=== PATIENT | male | born 1960 | race African-American/Black ===

== ENCOUNTER 2018-09-01 11:14 | Inpatient (IN) | payer BC ==
[2018-09-01 14:22] VITALS: BMI 23.0
--- NOTE | 2018-09-01 17:03 | HP ---
COWS - Scale Resting Pulse: 0= [place] 80 or Below Sweatin= Chills/Flushing Restless Observation: 1= Difficult to Sit Still Pupil Size: 0= Normal to Room Light Bone or Joint Aches: 1= Mild Discomfort Runny Nose/ Eye Tearin= Nasal Congestion GI Upset > 30mins: 1= Stomach Cramp Tremor Observation: 1= Tremor [place], Not Seen Yawning Observation: 2= >3x During Session Anxiety or Irritability: 1=Feels Anxious/Irritable Goose Flesh Skin: 0=Smooth Skin COWS Score: 9 CIWA Score - Admission Criteria OASAS Guidelines: Admission for Medically Managed Detox: Requires at least one of the followin. CIWA greater than 12 2. Seizures within the past 24 hours 3. Delirium tremens within the past 24 hours 4. Hallucinations within the past 24 hours 5. Acute intervention needed for co occurring medical disorder 6. Acute intervention needed for co occurring psychiatric disorder 7. Severe withdrawal that cannot be handled at a lower level of care (continued vomiting, continued diarrhea, abnormal vital signs) requiring intravenous medication and/or fluids 8. Admission ROS [facility] - HPI Chief Complaint: opioid withdrawal symptoms Allergies/Adverse Reactions: Allergies Allergy/AdvReac Type Severity Reaction Status Date / Time Penicillins Allergy Intermediate Hives Verified 09/01/18 14:10 pork derived (porcine) Allergy Intermediate Hives Verified 09/01/18 14:10 History of Present Illness: Patient is a 58 yo male with hx of heroin (intranasal) and crack/cocaine dependence is here seeking inpatient detox: PMHX: mitral valve and aortic Valve replacement (Feb 2018), HTN, eczema, HDL Psych: Denies Reports hx of unintentional overdose x 3 with last episode one month ago. Denies hx of seizures or blackouts Exam Limitations: No Limitations - Ebola screening Have you traveled outside of the country in the last 21 days: No Have you had contact with anyone from an Ebola affected area: No Do you have a fever: No - Review of Systems Constitutional: Changes in sleep, Weakness, Other (weight losst x 7 lbs) EENT: reports: Nose Congestion Respiratory: reports: No Symptoms reported Cardiac: reports: See HPI GI: reports: Poor Fluid Intake, Abdominal cramping : reports: No Symptoms Reported Musculoskeletal: reports: Back Pain Integumentary: reports: See HPI Neuro: reports: Weakness Endocrine: reports: No Symptoms Reported Hematology: reports: See HPI Psychiatric: reports: Mood/Affect Appropiate, Orientated x3 Other Systems: Reviewed and Negative Patient History - Patient Medical History Hx Anemia: Yes Hx Asthma: No Hx Chronic Obstructive Pulmonary Disease (COPD): No Hx Cancer: No Hx Cardiac Disorders: Yes (mitral vMitral Valve and aortic Valve replacement ( Feb 2018)) Hx Congestive Heart Failure: No Hx Hypertension: Yes Hx Hypercholesterolemia: Yes Hx Pacemaker: No HX Cerebrovascular Accident: No Hx Seizures: No Hx Dementia: No Hx Diabetes: No Hx Gastrointestinal Disorders: No Hx Liver Disease: No Hx Genitourinary Disorders: No Hx Sexually Transmitted Disorders: No Hx Renal Disease (ESRD): No Hx Thyroid Disease: No Hx Human Immunodeficiency Virus (HIV): No Hx Hepatitis C: No Hx Depression: No Hx Suicide Attempt: No Hx Bipolar Disorder: No - Patient Surgical History Past Surgical History: Yes Hx Cardiac Surgery: Yes (mitral vMitral Valve and aortic Valve replacement (Feb 2018)) Anesthesia Reaction: No - PPD History Previous Implant?: No Documented Results: Negative w/o proof PPD to be Administered?: Yes - Smoking Cessation Smoking history: Current every day smoker Have you smoked in the past 12 months: Yes Aproximately how many cigarettes per day: 5 Hx Chewing Tobacco Use: No Initiated information on smoking cessation: Yes 'Breaking Loose' booklet given: 09/01/18 - Substance & Tx. History Hx Alcohol Use: No Hx Substance Use: Yes Substance Use Type: Cocaine, Heroin Hx Substance Use Treatment: Yes ([facility] outpatient ) - Substances abused Crack Substance route: Smoking Frequency: Daily Amount used: $50-$60 Age of first use: 24 Date of last use: 09/01/18 Heroin Substance route: Inhalation Frequency: 3-6 times per week Amount used: 2 bags Age of first use: 24 Date of last use: 08/31/18 Family Disease History - Family Disease History Family History: Denies Admission Physical Exam [facility] - Vital Signs Vital Signs: Vital Signs - 24 hr 09/01/18 14:02 Temperature 97.0 F L Pulse Rate 76 Respiratory 17 Rate Blood Pressure 128/85 - Physical General Appearance: Yes: Appropriately Dressed, Thin, Anxious HEENTM: Yes: EOMI, Hearing grossly Normal, Normal ENT Inspection, Normocephalic , Normal Voice, MICHEAL, Pharynx Normal, Tm's normal, Other (chilithis) Respiratory: Yes: Chest Non-Tender, Lungs Clear, Normal Breath Sounds, No Respiratory Distress, No Accessory Muscle Use Neck: Yes: Within Normal Limits Breast: Yes: Breast Exam Deferred Cardiology: Yes: Regular Rhythm, Murmur, Other (+ metallic click) Abdominal: Yes: Within Normal Limits Genitourinary: Yes: Within Normal Limits Back: Yes: Within Normal Limits Musculoskeletal: Yes: full range of Motion, Gait Steady, Pelvis Stable, Back pain Extremities: Yes: Normal Capillary Refill, Normal Inspection, Normal Range of Motion, Non-Tender Neurological: Yes: insurance counsel II-XII NML intact, Fully Oriented, Alert, Motor Strength 5/5 Integumentary: Yes: Normal Color, Warm, Diaphoresis, Other (+ hyperpigermentation on both feet d/t eczema) Lymphatic: Yes: Within Normal Limits - Diagnostic (1) Opioid dependence with withdrawal Current Visit: Yes Status: Acute (2) Cocaine dependence Current Visit: Yes Status: Acute Qualifiers: Substance use status: uncomplicated Qualified Code(s): F14.20 - Cocaine dependence, uncomplicated (3) Essential (primary) hypertension Current Visit: Yes Status: Chronic (4) H/O aortic valve replacement Current Visit: Yes Status: Chronic Comment: Aortic and Mitral Valve replacement february 2018 on warfarin 8 mg qd (5) Nicotine dependence Current Visit: Yes Status: Acute Qualifiers: Nicotine product type: cigarettes (6) Eczema Current Visit: Yes Status: Chronic Qualifiers: Eczema type: flexural Qualified Code(s): L20.82 - Flexural eczema Cleared for Admission [facility] - Detox or Rehab [facility] Level of Care: Medically Managed Detox Regimen/Protocol: Methadone Breathalyzer - Breathalyzer Breathalyzer: 0 Urine Drug Screen - Test Device Lot number: [id number] Expiration date: 05/12/20 - Control Is test valid?: Yes - Results Drug screen NEGATIVE: No Urine drug screen results: JACK-Cocaine, FEN-Fentanyl, MOP-Opiates, BZO- Benzodiazepines, BUP-Suboxone Inpatient Rehab Admission - Rehab Decision to Admit Inpatient rehab admission?: No
[2018-09-01] MEDS ORDERED: cloNIDine HCL 0.1 MG TABLET PO PRN (17:10)
[2018-09-01] MEDS ORDERED: BISMUTH SUBSALICYLATE 524 MG/30 ML UD PO PRN (17:11)
[2018-09-01] MEDS ORDERED: MELATONIN 5 MG TABLETS PO PRN (17:11)
[2018-09-01] MEDS ORDERED: METHOCARBAMOL 500 MG TABLET PO PRN (17:11)
[2018-09-01] MEDS ORDERED: MAGNESIUM CITRATE 300 ML BOTTLE PO PRN (17:11)
[2018-09-01] MEDS ORDERED: MAGNESIUM HYDROX 2400MG/30ML ORAL SUSPENSION 30 ML CUP PO PRN (17:11)
[2018-09-01] MEDS ORDERED: ACETAMINOPHEN 325 MG TABLET (FP) PO PRN ×2 (17:11)
[2018-09-01] MEDS ORDERED: MENTHOL/PHENOL 1 EACH UD MM PRN (17:11)
[2018-09-01] MEDS ORDERED: MAG HYDROX/AL HYDROX/SIMETH 30 ML UNIT-DOSE CUP PO PRN (17:11)
[2018-09-01] MEDS ORDERED: diazePAM 5 MG TABLET PO PRN (17:22)
[2018-09-01] MEDS: THIAMINE HCL 100 MG TABLET (FP) PO SCH (22:53)
[2018-09-01] MEDS: MINERAL OIL/PETROLAT/WATER TOPICAL CREAM 113 GM JAR TP SCH (22:53)
[2018-09-01] MEDS: VITAMINS A AND D TOPICAL OINTMENT 60 GM TUBE TP SCH (22:53)
[2018-09-01] MEDS: METOPROLOL TARTRATE 25 MG TABLET (FP) PO SCH (22:53)
[2018-09-01] MEDS ORDERED: METHADONE HCL 10 MG TABLET (FOR DETOX USE ONLY) PO ONE (23:00)
[2018-09-02 05:49] LABS: URINE APPEARANCE CLEAR; URINE BILIRUBIN NEGATIVE (NEGATIVE); URINE COLOR YELLOW; URINE GLUCOSE (UA) NEGATIVE (NEGATIVE); URINE KETONE NEGATIVE (NEGATIVE); URINE LEUK ESTERASE NEGATIVE (NEGATIVE); URINE NITRITE NEGATIVE (NEGATIVE); URINE PROTEIN TRACE (NEGATIVE)
[2018-09-02] MEDS ORDERED: METHADONE HCL 5 MG TABLET (FOR DETOX USE ONLY) PO ONE (10:00)
[2018-09-02] MEDS: ATORVASTATIN CA 80 MG TABLET (FP) PO SCH (10:33)
[2018-09-02] MEDS: LISINOPRIL 5 MG TABLET (FP) PO SCH (10:33)
[2018-09-02] MEDS: PRENATAL VITAMINS W/ FOLIC ACID TABLET (FP) PO SCH (10:34)
[2018-09-02] MEDS: METOPROLOL TARTRATE 25 MG TABLET (FP) PO SCH ×2 (10:34→23:04)
[2018-09-02] MEDS: MINERAL OIL/PETROLAT/WATER TOPICAL CREAM 113 GM JAR TP SCH ×2 (10:35→23:04)
[2018-09-02] MEDS: VITAMINS A AND D TOPICAL OINTMENT 60 GM TUBE TP SCH ×2 (10:35→23:04)
[2018-09-02 11:48] LABS: ALBUMIN 3.1 g/dl (3.4-5.0); BILIRUBIN,TOTAL 0.3 mg/dL (0.2-1); BLOOD UREA NITROGEN 18.5 mg/dL (7-18); CALCIUM 8.8 mg/dL (8.5-10.1); CREATININE 1.2 mg/dL (0.55-1.3); POTASSIUM 4.2 mmol/L (3.5-5.1); TOT PROT 6.5 g/dl (6.4-8.2)
[2018-09-02 11:49] LABS: HEMATOCRIT 35.4 % (35.4-49); HEMOGLOBIN 11.7 GM/dL (11.7-16.9); MCH 29.5 pg (25.7-33.7); MCHC 33.1 g/dl (32.0-35.9); MEAN CELL VOLUME 89.1 fl (80-96); MEAN PLT VOLUME 9.2 fl (7.5-11.1); PLATELET COUNT 214 K/MM3 (134-434); RBC 3.97 M/mm3 (4.00-5.60); RDW 14.5 % (11.9-15.9); WHITE BLOOD COUNT 5.2 K/mm3 (4.0-10.0)
--- NOTE | 2018-09-02 12:26 | PN ---
S COWS - Scale Resting Pulse: 0= [place] 80 or Below Sweatin= Chills/Flushing Restless Observation: 1= Difficult to Sit Still Pupil Size: 1= Pupils >than Normal Bone or Joint Aches: 2= Severe Diffuse Aches Runny Nose/ Eye Tearin= Runny Nose/Eyes GI Upset > 30mins: 2= Nausea/Diarrhea Tremor Observation of Outstretched Hands: 2= Slight Tremor Visible Yawning Observation: 1= 1-2x During Session Anxiety or Irritability: 2=Irritable/Anxious Goose Flesh Skin: 0=Smooth Skin COWS Score: 14 S Progress Note (SOAP) Subjective: alert,irritable,anxious,interrupted sleep,tremor,pain in the body and back Objective: 09/02/18 12:24 Vital Signs Temperature 98.3 F 09/02/18 09:27 Pulse Rate 79 09/02/18 09:27 Respiratory Rate 18 09/02/18 09:27 Blood Pressure 122/77 09/02/18 09:27 O2 Sat by Pulse Oximetry (%) 09/02/18 12:25 Laboratory Last Values WBC 5.2 K/mm3 (4.0-10.0) 09/02/18 07:00 RBC 3.97 M/mm3 (4.00-5.60) L 09/02/18 07:00 Hgb 11.7 GM/dL (11.7-16.9) 09/02/18 07:00 Hct 35.4 % (35.4-49) 09/02/18 07:00 MCV 89.1 fl (80-96) 09/02/18 07:00 MCH 29.5 pg (25.7-33.7) 09/02/18 07:00 MCHC 33.1 g/dl (32.0-35.9) 09/02/18 07:00 RDW 14.5 % (11.9-15.9) 09/02/18 07:00 Plt Count 214 K/MM3 (134-434) 09/02/18 07:00 MPV 9.2 fl (7.5-11.1) 09/02/18 07:00 Sodium 143 mmol/L (136-145) 09/02/18 07:00 Potassium 4.2 mmol/L (3.5-5.1) 09/02/18 07:00 Chloride 108 mmol/L (98-107) H 09/02/18 07:00 Carbon Dioxide 30 mmol/L (21-32) 09/02/18 07:00 Anion Gap 5 MMOL/L (8-16) L 09/02/18 07:00 BUN 18.5 mg/dL (7-18) H 09/02/18 07:00 Creatinine 1.2 mg/dL (0.55-1.3) 09/02/18 07:00 Est GFR (CKD-EPI)AfAm 75.72 09/02/18 07:00 Est GFR (CKD-EPI)NonAf 65.33 09/02/18 07:00 Random Glucose 87 mg/dL (74-106) 09/02/18 07:00 Calcium 8.8 mg/dL (8.5-10.1) 09/02/18 07:00 Total Bilirubin 0.3 mg/dL (0.2-1) 09/02/18 07:00 AST 37 U/L (15-37) 09/02/18 07:00 ALT 34 U/L (13-61) 09/02/18 07:00 Alkaline Phosphatase 101 U/L (45-117) 09/02/18 07:00 Total Protein 6.5 g/dl (6.4-8.2) 09/02/18 07:00 Albumin 3.1 g/dl (3.4-5.0) L 09/02/18 07:00 Urine Color Yellow 09/02/18 04:00 Urine Appearance Clear 09/02/18 04:00 Urine pH 6.0 (5.0-8.0) 09/02/18 04:00 Ur Specific [place] 1.020 (1.010-1.035) 09/02/18 04:00 Urine Protein Trace (NEGATIVE) 09/02/18 04:00 Urine Glucose (UA) Negative (NEGATIVE) 09/02/18 04:00 Urine Ketones Negative (NEGATIVE) 09/02/18 04:00 Urine Blood Negative (NEGATIVE) 09/02/18 04:00 Urine Nitrite Negative (NEGATIVE) 09/02/18 04:00 Urine Bilirubin Negative (NEGATIVE) 09/02/18 04:00 Urine Urobilinogen 1.0 mg/dL (0.2-1.0) 09/02/18 04:00 Ur Leukocyte Esterase Negative (NEGATIVE) 09/02/18 04:00 09/02/18 12:25 rpr pending Assessment: 09/02/18 12:26 withdrawal symptom Plan: continue detox
--- NOTE | 2018-09-02 15:48 | PN ---
[facility] Progress Note Note: patient is on coumadin 8 mgs po daily,inr ordered in am
[2018-09-02] MEDS: WARFARIN NA 2 MG TABLET (UD) PO SCH (18:12)
[2018-09-02] MEDS: THIAMINE HCL 100 MG TABLET (FP) PO SCH (23:04)
--- NOTE | 2018-09-03 09:37 | PN ---
[facility] COWS - Scale Resting Pulse: 0= [place] 80 or Below Sweatin= Chills/Flushing Restless Observation: 1= Difficult to Sit Still Pupil Size: 0= Normal to Room Light Bone or Joint Aches: 1= Mild Discomfort Runny Nose/ Eye Tearin= None GI Upset > 30mins: 0= None Tremor Observation of Outstretched Hands: 0= None Yawning Observation: 1= 1-2x During Session Anxiety or Irritability: 2=Irritable/Anxious Goose Flesh Skin: 0=Smooth Skin COWS Score: 6 S Progress Note (SOAP) Subjective: c/o irritability, sweats, and mild headache. Objective: 09/03/18 09:35 Vital Signs 09/03/18 09/03/18 03:30 06:20 Temperature 97.6 F Pulse Rate 69 Respiratory 18 18 Rate Blood Pressure 125/82 Lab Results WBC 5.2 K/mm3 (4.0-10.0) 09/02/18 07:00 RBC 3.97 M/mm3 (4.00-5.60) L 09/02/18 07:00 Hgb 11.7 GM/dL (11.7-16.9) 09/02/18 07:00 Hct 35.4 % (35.4-49) 09/02/18 07:00 MCV 89.1 fl (80-96) 09/02/18 07:00 MCHC 33.1 g/dl (32.0-35.9) 09/02/18 07:00 RDW 14.5 % (11.9-15.9) 09/02/18 07:00 Plt Count 214 K/MM3 (134-434) 09/02/18 07:00 Sodium 143 mmol/L (136-145) 09/02/18 07:00 Potassium 4.2 mmol/L (3.5-5.1) 09/02/18 07:00 Chloride 108 mmol/L (98-107) H 09/02/18 07:00 Carbon Dioxide 30 mmol/L (21-32) 09/02/18 07:00 Anion Gap 5 MMOL/L (8-16) L 09/02/18 07:00 BUN 18.5 mg/dL (7-18) H 09/02/18 07:00 Creatinine 1.2 mg/dL (0.55-1.3) 09/02/18 07:00 Random Glucose 87 mg/dL (74-106) 09/02/18 07:00 Calcium 8.8 mg/dL (8.5-10.1) 09/02/18 07:00 Labs noted. Assessment: 09/03/18 09:35 AOX3, in no acute distress. Full rom, ambulates in the unit. withdrawal signs Plan: continue detox. increase fluids.
[2018-09-03] MEDS ORDERED: METHADONE HCL 10 MG TABLET (FOR DETOX USE ONLY) PO ONE (10:00)
[2018-09-03] MEDS: MINERAL OIL/PETROLAT/WATER TOPICAL CREAM 113 GM JAR TP SCH ×2 (12:39→22:42)
[2018-09-03] MEDS: METOPROLOL TARTRATE 25 MG TABLET (FP) PO SCH ×2 (12:39→22:42)
[2018-09-03] MEDS: ATORVASTATIN CA 80 MG TABLET (FP) PO SCH (12:39)
[2018-09-03] MEDS: LISINOPRIL 5 MG TABLET (FP) PO SCH (12:39)
[2018-09-03] MEDS: VITAMINS A AND D TOPICAL OINTMENT 60 GM TUBE TP SCH ×2 (12:39→22:42)
[2018-09-03] MEDS: PRENATAL VITAMINS W/ FOLIC ACID TABLET (FP) PO SCH (12:39)
[2018-09-03] MEDS: WARFARIN NA 2 MG TABLET (UD) PO SCH ×2 (18:55→21:23)
[2018-09-03] MEDS: THIAMINE HCL 100 MG TABLET (FP) PO SCH (22:42)
[2018-09-04] MEDS ORDERED: METHADONE HCL 5 MG TABLET (FOR DETOX USE ONLY) PO ONE (06:00)
[2018-09-04 09:16] VITALS: BP 138/97; PULSE 101; TEMP 97.7
--- NOTE | 2018-09-04 11:33 | DS ---
[facility] Detox Discharge Summary Admission Date: 09/01/18 Discharge Date: 09/04/18 - History Present History: Opioid Dependence Pertinent Past History: SEE ABOVE/BELOW - Physical Exam Results Vital Signs: Vital Signs Temperature 97.7 F 09/04/18 09:15 Pulse Rate 101 H 09/04/18 09:15 Respiratory Rate 20 09/04/18 09:15 Blood Pressure 138/97 09/04/18 09:15 O2 Sat by Pulse Oximetry (%) Pertinent Admission Physical Exam Findings: ADMITTED IN ACUTE WITHDRAWAL Laboratory Tests 09/02/18 09/02/18 09/02/18 04:00 07:00 07:00 WBC 5.2 RBC 3.97 L Hgb 11.7 Hct 35.4 MCV 89.1 MCH 29.5 MCHC 33.1 RDW 14.5 Plt Count 214 MPV 9.2 Sodium 143 Potassium 4.2 Chloride 108 H Carbon Dioxide 30 Anion Gap 5 L BUN 18.5 H Creatinine 1.2 Est GFR (CKD-EPI)AfAm 75.72 Est GFR (CKD-EPI)NonAf 65.33 Random Glucose 87 Calcium 8.8 Total Bilirubin 0.3 AST 37 ALT 34 Alkaline Phosphatase 101 Total Protein 6.5 Albumin 3.1 L Urine Color Yellow Urine Appearance Clear Urine pH 6.0 Ur Specific [place] 1.020 Urine Protein Trace Urine Glucose (UA) Negative Urine Ketones Negative Urine Blood Negative Urine Nitrite Negative Urine Bilirubin Negative Urine Urobilinogen 1.0 Ur Leukocyte Esterase Negative RPR Titer 09/02/18 07:00 WBC RBC Hgb Hct MCV MCH MCHC RDW Plt Count MPV Sodium Potassium Chloride Carbon Dioxide Anion Gap BUN Creatinine Est GFR (CKD-EPI)AfAm Est GFR (CKD-EPI)NonAf Random Glucose Calcium Total Bilirubin AST ALT Alkaline Phosphatase Total Protein Albumin Urine Color Urine Appearance Urine pH Ur Specific [place] Urine Protein Urine Glucose (UA) Urine Ketones Urine Blood Urine Nitrite Urine Bilirubin Urine Urobilinogen Ur Leukocyte Esterase RPR Titer Nonreactive - Treatment Hospital Course: Detox Protocol Followed, Detoxed Safely, Responded well, Discharged Condition Good - Medication Discharge Medications: Ambulatory Orders Atorvastatin Calcium 80 mg PO DAILY 09/01/18 Lisinopril [Zestril] 2.5 mg PO DAILY 09/01/18 Metoprolol Tartrate [Lopressor -] 25 mg PO BID 09/01/18 Warfarin Sodium [Coumadin] 8 mg PO DAILY 09/01/18 - Diagnosis (1) Cocaine dependence Status: Acute Qualifiers: Substance use status: uncomplicated Qualified Code(s): F14.20 - Cocaine dependence, uncomplicated (2) Nicotine dependence Status: Acute Qualifiers: Nicotine product type: cigarettes (3) Opioid dependence with withdrawal Status: Acute (4) Essential (primary) hypertension Status: Chronic (5) H/O aortic valve replacement Status: Chronic - AMA Did Patient Leave Against Medical Advice: No
--- NOTE | 2018-09-04 13:02 | EKG ---
Test Reason : Blood Pressure : / mmHG Vent. Rate : 072 BPM Atrial Rate : 072 BPM P-R Int : 170 ms QRS Dur : 100 ms QT Int : 406 ms P-R-T Axes : 058 003 046 degrees QTc Int : 444 ms NORMAL SINUS RHYTHM POSSIBLE LEFT ATRIAL ENLARGEMENT LEFT VENTRICULAR HYPERTROPHY EARLY REPOLARIZATION ABNORMAL ECG NO PREVIOUS ECGS AVAILABLE Confirmed by RACHEAL HENRY MD ([id number]) on 09/04/2018 1:01:59 PM Referred By: Zia Valero Confirmed By:RACHEAL HENRY MD
== END 2018-09-04 10:58 | disposition home or self-care (01) | DRG 897 ==
LOC: YASAS 11:14 → Y3N 18:37
PROVIDERS: ADMIT Surgery; ATTEND Surgery
PROC: HZ2ZZZZ Detoxification Services for Substance Abuse Treatment (ICD-10-PCS; principal; 2018-09-01)
DX: F11.23 Opioid dependence with withdrawal (principal); F14.20 Cocaine dependence, uncomplicated; F17.210 Nicotine dependence, cigarettes, uncomplicated; I10 Essential (primary) hypertension; E78.5 Hyperlipidemia, unspecified; L30.9 Dermatitis, unspecified; Z79.01 Long term (current) use of anticoagulants; Z95.2 Presence of prosthetic heart valve
CPT/HCPCS: 36415; 80053; 81003; 85027; 86593; 93005; 93010